=== PATIENT | female | born 1960 | race Caucasian/White ===

== ENCOUNTER 2018-02-07 00:21 | Inpatient (IN) | payer SELFPAY ==
[2018-02-07] MEDS ORDERED: dilTIAZem IV PUSH 25 MG/5 ML VIAL (00:49)
[2018-02-07] MEDS: ASPIRIN CHEWABLE 81 MG TABLET. PO (00:52)
[2018-02-07] MEDS: dilTIAZem IV PUSH 25 MG/5 ML VIAL IVP (00:53)
[2018-02-07 00:59] LABS: ADD MAN DIFF? NO
[2018-02-07 01:03] LABS: BASO # 0.1 x10^3/uL (0.0-0.2); BASO % 1 % (0-3); EOS # 0.4 x10^3/uL (0.0-0.7); EOS % 8 % (0-3); HEMATOCRIT 44.4 % (36.0-47.0); HEMOGLOBIN 15.5 g/dL (12.0-15.5); LYMPH # 2.9 x10^3/uL (1.0-4.8); LYMPH % 50 % (24-48); MEAN CORPUSCULAR HEMOGLOBIN 34 pg (25-35); MEAN CORPUSCULAR HGB CONC 35 g/dL (31-37); MEAN CORPUSCULAR VOLUME 96 fL (79-100); MONO # 0.5 x10^3/uL (0.0-1.1); MONO % 8 % (0-9); NEUT # 1.9 x10^3uL (1.8-7.7); NEUT % 33 % (31-73); PLATELET COUNT 185 x10^3/uL (140-400); RED BLOOD COUNT 4.63 x10^6/uL (3.50-5.40); RED CELL DISTRIBUTION WIDTH 12.8 % (11.5-14.5); WHITE BLOOD COUNT 5.8 x10^3/uL (4.0-11.0)
[2018-02-07 01:13] LABS: ANION GAP 9 (6-14); BLOOD UREA NITROGEN 21 mg/dL (7-20); BUN/CREATININE RATIO 26 (6-20); CALCIUM 10.3 mg/dL (8.5-10.1); CARBON DIOXIDE 30 mmol/L (21-32); CHLORIDE 104 mmol/L (98-107); CREATININE 0.8 mg/dL (0.6-1.0); GFR 73.9; GLUCOSE 88 mg/dL (70-99); POTASSIUM 3.4 mmol/L (3.5-5.1); SODIUM 143 mmol/L (136-145)
[2018-02-07 01:18] LABS: ALBUMIN 4.2 g/dL (3.4-5.0); ALK PHOS 97 U/L (46-116); ALT (SGPT) 27 U/L (14-59); AST (SGOT) 26 U/L (15-37); TOTAL BILIRUBIN 0.9 mg/dL (0.2-1.0); TOTAL PROTEIN 8.4 g/dL (6.4-8.2)
[2018-02-07 01:21] LABS: TROPONINI < 0.017 ng/mL (0.000-0.055)
[2018-02-07] MEDS: METOPROLOL TARTRATE 5 MG/5 ML VIAL. IVP ×2 (01:26→02:30)
[2018-02-07 03:27] LABS: TROPONINI 0.053 ng/mL (0.000-0.055)
[2018-02-07 03:33] LABS: THYROID STIM HORMONE (TSH) 4.425 uIU/mL (0.358-3.74)
[2018-02-07] MEDS ORDERED: NITROGLYCERIN SUBLINGUAL 0.4 MG BOTTLE OF 25. SL (04:15)
[2018-02-07] MEDS: IV NORMAL SALINE 1000ML BAG 1,000 ML IV (04:30)
[2018-02-07 07:35] LABS: TROPONINI 0.304 ng/mL (0.000-0.055)
[2018-02-07] MEDS: METOPROLOL TART IMMED RELEASE 25 MG TABLET. PO (12:31)
== END 2018-02-07 15:54 | disposition home or self-care (01) | DRG 309 ==
LOC: ER 00:21 → 2 SOUTH 04:15
DX: I48.92 Unspecified atrial flutter (principal); I24.8 Other forms of acute ischemic heart disease; I48.91 Unspecified atrial fibrillation; I10 Essential (primary) hypertension; Z88.0 Allergy status to penicillin; Z88.1 Allergy status to other antibiotic agents; Z91.041 Radiographic dye allergy status; Z82.49 Family history of ischemic heart disease and other diseases of the circulatory system; Z79.899 Other long term (current) drug therapy
CPT/HCPCS: 36415; 71045; 80053; 83735; 84443; 84484; 85025; 93005; 96374; 96375; 99285; 99285-25; J3490

== ENCOUNTER 2018-09-06 07:31 | Inpatient (IN) | payer OTHER ==
[~2018-09-06] VITALS: Ht 162.6 cm; Wt 89.1 kg
[~2018-09-06 07:31] MED LIST: CHOL100013 PO; GUAI600T47 PO; IBUP-1007 PO; LISI1TAB3 PO; MULT1TAB52 PO; OMEG1CAP6 PO
[2018-09-06] MEDS ORDERED: ONDANSETRON PF 4 MG/2 ML VIAL. IV ONE (08:00)
[2018-09-06] MEDS ORDERED: IV NORMAL SALINE 1000ML BAG 1,000 ML IV SCH (08:00)
[2018-09-06 08:02] LABS: BILIRUBIN,URINE NEGATIVE (NEG); CLARITY,URINE CLEAR; COLOR,URINE YELLOW; NITRITE,URINE NEGATIVE (NEG); PROTEIN,URINE NEGATIVE (NEG-TRACE); UROBILINOGEN,URINE 0.2 mg/dL (0.2 mg/dL)
[2018-09-06 08:12] LABS: SQUAMOUS EPITHELIAL CELL,UR MANY /LPF
[2018-09-06 08:13] LABS: BACTERIA,URINE MODERATE /HPF (0-FEW)
[2018-09-06 08:16] LABS: BASO % 0 % (0-3); EOS % 1 % (0-3); HEMATOCRIT 40.1 % (36.0-47.0); HEMOGLOBIN 13.6 g/dL (12.0-15.5); LYMPH # 0.4 x10^3/uL (1.0-4.8); LYMPH % 6 % (24-48); MEAN CORPUSCULAR HEMOGLOBIN 33 pg (25-35); MEAN CORPUSCULAR HGB CONC 34 g/dL (31-37); MEAN CORPUSCULAR VOLUME 97 fL (79-100); MONO # 0.3 x10^3/uL (0.0-1.1); MONO % 4 % (0-9); NEUT # 5.9 x10^3uL (1.8-7.7); NEUT % 88 % (31-73); PLATELET COUNT 229 x10^3/uL (140-400); RED BLOOD COUNT 4.12 x10^6/uL (3.50-5.40); RED CELL DISTRIBUTION WIDTH 12.9 % (11.5-14.5); WHITE BLOOD COUNT 6.7 x10^3/uL (4.0-11.0)
[2018-09-06 08:24] LABS: CREATININE 0.8 mg/dL (0.6-1.0); GFR 73.9; POTASSIUM 4.2 mmol/L (3.5-5.1)
[2018-09-06 08:29] LABS: ALBUMIN 3.5 g/dL (3.4-5.0); TOTAL BILIRUBIN 1.3 mg/dL (0.2-1.0)
[2018-09-06 10:11] LABS: % BANDS 4 % (0-9); % LYMPHS 6 % (24-48); % MONOS 3 % (0-10); % SEGS 87 % (35-66); PLT ESTIMATE ADEQUATE (ADEQUATE)
--- NOTE | 2018-09-06 11:07 | PDOC1 ---
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 was seen in urgent care 3 days ago and empirically given flagyl and has not heard back about c. diff results from [facility] yet. Her nausea was not relieved with zofran and she began vomiting and it was not stopped until zofran, reglan, benadryl in the ED. Last BM was this morning. Past Medical History Cardiovascular: HTN, Other Past Surgical History Past Surgical History: Cholecystectomy Family History Family History: Hypertension Social History Smoke: No ALCOHOL: rare Drugs: None Current Medications Current Medications Current Medications Sodium Chloride 1,000 ml @ 1,000 mls/hr Q1H IV Last administered on 09/06/18at 08:28; Start 09/06/18 at 08:00; Stop 09/06/18 at 08:59; Status DC Ondansetron HCl (Zofran) 4 mg 1X ONCE IV Last administered on 09/06/18at 08:28 ; Start 09/06/18 at 08:00; Stop 09/06/18 at 08:01; Status DC Active Scripts Active Reported Ibuprofen 600 Mg Tablet 600 Mg PO PRN Q6HRS PRN Mucinex (Guaifenesin) 600 Mg Tablet.er 1 Tab PO BID Vitamin D (Cholecalciferol (Vitamin D3)) 1,000 Unit Capsule 1 Cap PO DAILY Multivitamins (Multivitamin) 1 Each Tablet 1 Tab PO DAILY Fish Oil 1,000 Mg Capsule (Tad-3 Fatty Acids/Fish Oil) 1 Each Capsule 1 Each PO Lisinopril-Hctz 10-12.5 Mg Tab (Lisinopril/Hydrochlorothiazide) 1 Each Tablet 1 Tab PO DAILY Allergies Allergies: Coded Allergies: amoxicillin (Verified Allergy, Intermediate, immediate vomiting, 02/07/18) clavulanic acid (Verified Allergy, Intermediate, immediate vomiting, ) Iodinated Contrast- Oral and IV Dye (Verified Allergy, Mild, rash, 02/07/18 ) ROS General: YES: Appetite; No: Chills, Night Sweats, Fatigue, Malaise, Other PSYCHOLOGICAL ROS: No: Anxiety, Behavioral Disorder, Concentration difficultie , Decreased libido, Depression, Disorientation, Hallucinations, Hostility, Irritablity, Memory difficulties, Mood Swings, Obsessive thoughts, Physical abuse, Sexual abuse, Sleep disturbances, Suicidal ideation, Other Eyes: No Blurry vision, No Decreased vision, No Double vision, No Dry eyes, No Excessive tearing, No Eye Pain, No Itchy Eyes, No Loss of vision, No Photophobia , No Scotomata, No Uses contacts, No Uses glasses, No Other HEENT: No: Heacaches, Visual Changes, Hearing change, Nasal congestion, Nasal discharge, Oral lesions, Sinus pain, Sore Throat, Epistaxis, Sneezing, Snoring, Tinnitus, Vertigo, Vocal changes, Other ALLERGY AND IMMUNOLOGY: No: Hives, Insect Bite Sensitivity, Itchy/Watery Eyes, Nasal Congestion, Post Nasal Drip, Seasonal Allergies, Other Hematological and Lymphatic: No: Bleeding Problems, Blood Clots, Blood Transfusions, Brusing, Night Sweats, Pallor, Swollen Lymph Nodes, Other ENDOCRINE: No: Breast Changes, Galactorrhea, Hair Pattern Changes, Hot Flashes , Malaise/lethargy, Mood Swings, Palpitations, Polydipsia/polyuria, Skin Changes , Temperature Intolerance, Unexpected Weight Changes, Other Breast: No New/Changing Breast Lumps, No Nipple changes, No Nipple discharge, No Other Respiratory: No: Cough, Hemoptysis, Orthopnea, Pleuritic Pain, Shortness of breath, SOB with excertion, Sputum Changes, Stridor, Tachypnea, Wheezing, Other Cardiovascular: No Chest Pain, No Palpitations, No Orthopnea, No Paroxysmal Noc. Dyspnea, No Edema, No Lt Headedness, No Other Gastrointestinal: Yes Nausea, Yes Vomiting, Yes Diarrhea; No Abdominal Pain, No Constipation, No Melena, No Hematochezia, No Other Genitourinary: No Dysuria, No Frequency, No Incontinence, No Hematuria, No Retention, No Discharge, No Urgency, No Pain, No Flank Pain, No Other, No , No , No , No , No , No , No Musculoskeletal: No Gait Disturbance, No Joint Pain, No Joint Stiffness, No Joint Swelling, No Muscle Pain, No Muscular Weakness, No Pain In:, No Swelling In:, No Other Neurological: No Behavorial Changes, No Bowel/Bladder ControlChng, No Confusion , No Dizziness, No Gait Disturbance, No Headaches, No Impaired Coord/balance, No Memory Loss, No Numbness/Tingling, No Seizures, No Speech Problems, No Tremors, No Visual Changes, No Weakness, No Other Skin: No Dry Skin, No Eczema, No Hair Changes, No Lumps, No Mole Changes, No Mottling, No Nail Changes, No Pruritus, No Rash, No Skin Lesion Changes, No Other, No Acne Physical Exam General: Alert, Oriented X3, Cooperative, No acute distress HEENT: Atraumatic, PERRLA, EOMI, Mucous membr. moist/pink Lungs: Clear to auscultation, Normal air movement Heart: S1S2, RRR, no gallops, no murmurs Abdomen: Normal bowel sounds, Soft, No hepatosplenomegaly, No masses, Other ( Mild LLQ tender) Rectal Exam: not examined Extremities: No clubbing, No cyanosis, No edema, Normal pulses, No tenderness/ swelling Skin: No rashes, No breakdown, No significant lesion Neuro: Normal gait, Normal speech, Strength at 5/5 X4 ext, Normal tone, Sensation intact, Cranial nerves 3-12 NL, Reflexes 2+ Psych/Mental Status: Mental status NL, Mood NL Vitals Vitals Vital Signs Date Time Temp Pulse Resp B/P (MAP) Pulse Ox O2 Delivery O2 Flow Rate FiO2 09/06/18 07:35 98.1 63 16 132/71 (91) Room Air 98.1 Labs Labs Laboratory Tests Test 09/06/18 07:15 09/06/18 08:00 Urine Collection Type Void Urine Color Yellow Urine Clarity Clear Urine pH 6.0 Urine Specific [place] 1.025 Urine Protein Negative mg/dL (NEG-TRACE) Urine Glucose (UA) Negative mg/dL (NEG) Urine Ketones (Stick) Trace mg/dL (NEG) Urine Blood Negative (NEG) Urine Nitrite Negative (NEG) Urine Bilirubin Negative (NEG) Urine Urobilinogen Dipstick 0.2 mg/dL (0.2 mg/dL) Urine Leukocyte Esterase Small (NEG) Urine RBC 1-2 /HPF (0-2) Urine WBC 1-4 /HPF (0-4) Urine Squamous Epithelial Cells Many /LPF Urine Bacteria Moderate /HPF (0-FEW) Urine Mucus Marked /LPF White Blood Count 6.7 x10^3/uL (4.0-11.0) Red Blood Count 4.12 x10^6/uL (3.50-5.40) Hemoglobin 13.6 g/dL (12.0-15.5) Hematocrit 40.1 % (36.0-47.0) Mean Corpuscular Volume 97 fL (79-100) Mean Corpuscular Hemoglobin 33 pg (25-35) Mean Corpuscular Hemoglobin Concent 34 g/dL (31-37) Red Cell Distribution Width 12.9 % (11.5-14.5) Platelet Count 229 x10^3/uL (140-400) Neutrophils (%) (Auto) 88 % (31-73) Lymphocytes (%) (Auto) 6 % (24-48) Monocytes (%) (Auto) 4 % (0-9) Eosinophils (%) (Auto) 1 % (0-3) Basophils (%) (Auto) 0 % (0-3) Neutrophils # (Auto) 5.9 x10^3uL (1.8-7.7) Lymphocytes # (Auto) 0.4 x10^3/uL (1.0-4.8) Monocytes # (Auto) 0.3 x10^3/uL (0.0-1.1) Eosinophils # (Auto) 0.0 x10^3/uL (0.0-0.7) Basophils # (Auto) 0.0 x10^3/uL (0.0-0.2) Segmented Neutrophils % 87 % (35-66) Band Neutrophils % 4 % (0-9) Lymphocytes % 6 % (24-48) Monocytes % 3 % (0-10) Platelet Estimate Adequate (ADEQUATE) Sodium Level 144 mmol/L (136-145) Potassium Level 4.2 mmol/L (3.5-5.1) Chloride Level 104 mmol/L (98-107) Carbon Dioxide Level 29 mmol/L (21-32) Anion Gap 11 (6-14) Blood Urea Nitrogen 14 mg/dL (7-20) Creatinine 0.8 mg/dL (0.6-1.0) Estimated GFR (Cockcroft-Gault) 73.9 BUN/Creatinine Ratio 18 (6-20) Glucose Level 121 mg/dL (70-99) Calcium Level 9.0 mg/dL (8.5-10.1) Total Bilirubin 1.3 mg/dL (0.2-1.0) Aspartate Amino Transf (AST/SGOT) 121 U/L (15-37) Alanine Aminotransferase (ALT/SGPT) 84 U/L (14-59) Alkaline Phosphatase 101 U/L (46-116) Total Protein 7.0 g/dL (6.4-8.2) Albumin 3.5 g/dL (3.4-5.0) Albumin/Globulin Ratio 1.0 (1.0-1.7) Lipase 120 U/L (73-393) Laboratory Tests Test 09/06/18 07:15 09/06/18 08:00 Urine Collection Type Void Urine Color Yellow Urine Clarity Clear Urine pH 6.0 Urine Specific [place] 1.025 Urine Protein Negative mg/dL (NEG-TRACE) Urine Glucose (UA) Negative mg/dL (NEG) Urine Ketones (Stick) Trace mg/dL (NEG) Urine Blood Negative (NEG) Urine Nitrite Negative (NEG) Urine Bilirubin Negative (NEG) Urine Urobilinogen Dipstick 0.2 mg/dL (0.2 mg/dL) Urine Leukocyte Esterase Small (NEG) Urine RBC 1-2 /HPF (0-2) Urine WBC 1-4 /HPF (0-4) Urine Squamous Epithelial Cells Many /LPF Urine Bacteria Moderate /HPF (0-FEW) Urine Mucus Marked /LPF White Blood Count 6.7 x10^3/uL (4.0-11.0) Red Blood Count 4.12 x10^6/uL (3.50-5.40) Hemoglobin 13.6 g/dL (12.0-15.5) Hematocrit 40.1 % (36.0-47.0) Mean Corpuscular Volume 97 fL (79-100) Mean Corpuscular Hemoglobin 33 pg (25-35) Mean Corpuscular Hemoglobin Concent 34 g/dL (31-37) Red Cell Distribution Width 12.9 % (11.5-14.5) Platelet Count 229 x10^3/uL (140-400) Neutrophils (%) (Auto) 88 % (31-73) Lymphocytes (%) (Auto) 6 % (24-48) Monocytes (%) (Auto) 4 % (0-9) Eosinophils (%) (Auto) 1 % (0-3) Basophils (%) (Auto) 0 % (0-3) Neutrophils # (Auto) 5.9 x10^3uL (1.8-7.7) Lymphocytes # (Auto) 0.4 x10^3/uL (1.0-4.8) Monocytes # (Auto) 0.3 x10^3/uL (0.0-1.1) Eosinophils # (Auto) 0.0 x10^3/uL (0.0-0.7) Basophils # (Auto) 0.0 x10^3/uL (0.0-0.2) Segmented Neutrophils % 87 % (35-66) Band Neutrophils % 4 % (0-9) Lymphocytes % 6 % (24-48) Monocytes % 3 % (0-10) Platelet Estimate Adequate (ADEQUATE) Sodium Level 144 mmol/L (136-145) Potassium Level 4.2 mmol/L (3.5-5.1) Chloride Level 104 mmol/L (98-107) Carbon Dioxide Level 29 mmol/L (21-32) Anion Gap 11 (6-14) Blood Urea Nitrogen 14 mg/dL (7-20) Creatinine 0.8 mg/dL (0.6-1.0) Estimated GFR (Cockcroft-Gault) 73.9 BUN/Creatinine Ratio 18 (6-20) Glucose Level 121 mg/dL (70-99) Calcium Level 9.0 mg/dL (8.5-10.1) Total Bilirubin 1.3 mg/dL (0.2-1.0) Aspartate Amino Transf (AST/SGOT) 121 U/L (15-37) Alanine Aminotransferase (ALT/SGPT) 84 U/L (14-59) Alkaline Phosphatase 101 U/L (46-116) Total Protein 7.0 g/dL (6.4-8.2) Albumin 3.5 g/dL (3.4-5.0) Albumin/Globulin Ratio 1.0 (1.0-1.7) Lipase 120 U/L (73-393) VTE Prophylaxis Ordered VTE Prophylaxis Devices: Yes VTE Pharmacological Prophylaxi: No Assessment/Plan Assessment/Plan A/P: N/V/D - likely gastroenteritis, will not cont antibiotics. IVF, nausea control. No leukocytosis, but left shift Transaminitis - will get RUQ US, trend LFTs, IVF HTN - cont home meds FEN - NPO PPX - SCDs, Pepcid FULL CODE Inpatient for intractable nausea and vomiting requiring IV meds. DORI COPPOLA MD Sep 06, 2018 11:07
--- NOTE | 2018-09-06 11:08 | PHYS DOC ---
Past Medical History Past Medical History: Hypertension Past Surgical History: Cholecystectomy Alcohol Use: Occasionally Drug Use: None Adult General Chief Complaint Chief Complaint: NAUSEA/VOMITING/DIARRHA HPI HPI Patient is a 57-year-old female who presents with complaint of nausea and vomiting. Patient states that she has had diarrhea for the last several days and received tentative diagnosis of colitis. 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 She states that shortly after having worked with 1 particular patient she developed fairly severe diarrhea. She was seen over at urgent care and a stool culture was sent for evaluation for C. difficile but she is still waiting for culture results. Patient states that she was started on metronidazole 3 days ago and states that she has been taking at least 2 doses of the metronidazole day. She states that yesterday she developed nausea with vomiting and states since that time she has not really keep much other than just water down. She does indicate that she has a little bit of abdominal cramping. She denies any significant pain otherwise. Patient is concerned that she is becoming dehydrated. Review of Systems Review of Systems Constitutional: Denies fever or chills [] Respiratory: Denies cough or shortness of breath [] Cardiovascular: No additional information not addressed in HPI [] GI: Denies abdominal pain. Complains of nausea with vomiting and diarrhea. [] Integument: Denies rash or skin lesions [] Neurologic: Denies headache, focal weakness or sensory changes [] All other systems were reviewed and found to be within normal limits, except as documented in this note. Current Medications Current Medications Current Medications Medications (Trade) Dose Ordered Sig/Juan Start Time Stop Time Status Last Admin Dose Admin Ondansetron HCl (Zofran) 4 mg 1X ONCE 09/06/18 08:00 09/06/18 08:01 DC 09/06/18 08:28 4 MG Sodium Chloride 1,000 ml @ 1,000 mls/hr Q1H 09/06/18 08:00 09/06/18 08:59 DC 09/06/18 08:28 1,000 MLS/HR Allergies Allergies Allergies Coded Allergies Type Severity Reaction Last Updated Verified amoxicillin Allergy Intermediate immediate vomiting 02/07/18 Yes clavulanic acid Allergy Intermediate immediate vomiting 02/07/18 Yes Iodinated Contrast- Oral and IV Dye Allergy Mild rash 02/07/18 Yes Physical Exam Physical Exam Constitutional: Well developed, well nourished, no acute distress, non-toxic appearance. [] HENT: Normocephalic, atraumatic, bilateral external ears normal, oropharynx dry , no oral exudates, nose normal. [] Eyes: PERRLA, EOMI, conjunctiva normal, no discharge. [] Neck: Normal range of motion, no tenderness, supple, no stridor. [] Cardiovascular: Regular rate and rhythm[] Lungs & Thorax: Bilateral breath sounds clear to auscultation [] Abdomen: Bowel sounds normal, soft, no tenderness. [] Skin: Warm, dry, no erythema, no rash. [] Extremities: No tenderness, no cyanosis, no clubbing, ROM intact, no edema. [] Neurologic: Alert and oriented X 3, no focal deficits noted. [] Current Patient Data Vital Signs Vital Signs Date Time Temp Pulse Resp B/P (MAP) Pulse Ox O2 Delivery O2 Flow Rate FiO2 09/06/18 10:30 68 16 121/68 (85) 98 Room Air 09/06/18 07:35 98.1 98.1 Lab Values Laboratory Tests Test 09/06/18 07:15 09/06/18 08:00 Urine Collection Type Void Urine Color Yellow Urine Clarity Clear Urine pH 6.0 Urine Specific [place] 1.025 Urine Protein Negative mg/dL (NEG-TRACE) Urine Glucose (UA) Negative mg/dL (NEG) Urine Ketones (Stick) Trace mg/dL (NEG) Urine Blood Negative (NEG) Urine Nitrite Negative (NEG) Urine Bilirubin Negative (NEG) Urine Urobilinogen Dipstick 0.2 mg/dL (0.2 mg/dL) Urine Leukocyte Esterase Small (NEG) Urine RBC 1-2 /HPF (0-2) Urine WBC 1-4 /HPF (0-4) Urine Squamous Epithelial Cells Many /LPF Urine Bacteria Moderate /HPF (0-FEW) Urine Mucus Marked /LPF White Blood Count 6.7 x10^3/uL (4.0-11.0) Red Blood Count 4.12 x10^6/uL (3.50-5.40) Hemoglobin 13.6 g/dL (12.0-15.5) Hematocrit 40.1 % (36.0-47.0) Mean Corpuscular Volume 97 fL (79-100) Mean Corpuscular Hemoglobin 33 pg (25-35) Mean Corpuscular Hemoglobin Concent 34 g/dL (31-37) Red Cell Distribution Width 12.9 % (11.5-14.5) Platelet Count 229 x10^3/uL (140-400) Neutrophils (%) (Auto) 88 % (31-73) H Lymphocytes (%) (Auto) 6 % (24-48) L Monocytes (%) (Auto) 4 % (0-9) Eosinophils (%) (Auto) 1 % (0-3) Basophils (%) (Auto) 0 % (0-3) Neutrophils # (Auto) 5.9 x10^3uL (1.8-7.7) Lymphocytes # (Auto) 0.4 x10^3/uL (1.0-4.8) L Monocytes # (Auto) 0.3 x10^3/uL (0.0-1.1) Eosinophils # (Auto) 0.0 x10^3/uL (0.0-0.7) Basophils # (Auto) 0.0 x10^3/uL (0.0-0.2) Segmented Neutrophils % 87 % (35-66) H Band Neutrophils % 4 % (0-9) Lymphocytes % 6 % (24-48) L Monocytes % 3 % (0-10) Platelet Estimate Adequate (ADEQUATE) Sodium Level 144 mmol/L (136-145) Potassium Level 4.2 mmol/L (3.5-5.1) Chloride Level 104 mmol/L (98-107) Carbon Dioxide Level 29 mmol/L (21-32) Anion Gap 11 (6-14) Blood Urea Nitrogen 14 mg/dL (7-20) Creatinine 0.8 mg/dL (0.6-1.0) Estimated GFR (Cockcroft-Gault) 73.9 BUN/Creatinine Ratio 18 (6-20) Glucose Level 121 mg/dL (70-99) H Calcium Level 9.0 mg/dL (8.5-10.1) Total Bilirubin 1.3 mg/dL (0.2-1.0) H Aspartate Amino Transferase (AST) 121 U/L (15-37) H Alanine Aminotransferase (ALT) 84 U/L (14-59) H Alkaline Phosphatase 101 U/L (46-116) Total Protein 7.0 g/dL (6.4-8.2) Albumin 3.5 g/dL (3.4-5.0) Albumin/Globulin Ratio 1.0 (1.0-1.7) Lipase 120 U/L (73-393) Laboratory Tests 09/06/18 08:00 Laboratory Tests 09/06/18 08:00 EKG EKG [] Radiology/Procedures Radiology/Procedures [] Course & Med Decision Making Course & Med Decision Making Pertinent Labs and Imaging studies reviewed. (See chart for details) [] Dragon Disclaimer Dragon Disclaimer This electronic medical record was generated, in whole or in part, using a voice recognition dictation system. Departure Departure Impression: Primary Impression: C. difficile diarrhea Additional Impression: Intractable vomiting with nausea Disposition: ADMITTED INPATIENT Admitting Physician: Other Condition: IMPROVED (Dr. Beyer) Referrals: UNKNOWN PCP NAME (PCP) Problem Qualifiers Additional Impression: Intractable vomiting with nausea Vomiting type: unspecified Qualified Codes: R11.2 - Nausea with vomiting, unspecified VIN HINSON Jr. DO Sep 06, 2018 11:08
[2018-09-06] MEDS ORDERED: ONDANSETRON PF 4 MG/2 ML VIAL. IV PRN (11:15)
[2018-09-06] MEDS ORDERED: METOCLOPRAMIDE HCL 10 MG/2 ML VIAL. IV ONE (11:30)
[2018-09-06] MEDS ORDERED: diphenhydrAMINE 50 MG/ML VIAL IVP ONE (11:30)
[2018-09-06] MEDS: IV NORMAL SALINE 1000ML BAG 1,000 ML IV SCH ×2 (11:43→21:16)
[2018-09-06 12:44] VITALS: BP 115/68
[2018-09-06] MEDS ORDERED: METOCLOPRAMIDE HCL 10 MG/2 ML VIAL. IV PRN (13:30)
[2018-09-06] MEDS ORDERED: ONDANSETRON ODT 4 MG TAB.RAPDIS. PO PRN (13:30)
[2018-09-06] MEDS ORDERED: PROCHLORPERAZINE 10 MG/2 ML VIAL. IV PRN (13:30)
[2018-09-06] MEDS: ASPIRIN ENTERIC COATED 81 MG TABLET.DR. PO SCH (14:00)
[2018-09-06] MEDS: ATENOLOL 25 MG TABLET. PO SCH (14:00)
[2018-09-06] MEDS: APIXABAN 5 MG TABLET. PO SCH ×2 (14:00→21:13)
[2018-09-06] MEDS: FAMOTIDINE 20 MG/2 ML VIAL IVP SCH ×2 (14:15→21:13)
[2018-09-06] MEDS: ONDANSETRON PF 4 MG/2 ML VIAL. IV PRN (14:21)
--- NOTE | 2018-09-06 14:28 | RAD ---
Indication:Right upper quadrant pain, transaminitis. TECHNIQUE: Grayscale, color Doppler and spectral waveform is of the abdomen obtained. COMPARISON:None FINDINGS: Pancreas is not well visualized due to overlying bowel gas. IVC within normal limits. No aortic aneurysm. Main portal vein is patent with hepatopedal flow. Liver measures 16 cm in longest dimension with diffusely increased echogenicity and decreased through transmission. Right kidney measures 9.7 cm in length without hydronephrosis. CBD measures 5 mm in diameter and is within normal limits. Status post cholecystectomy. Spleen measures 10 cm in length an is normal in size. Left kidney measures 11.9 cm in length without hydronephrosis. IMPRESSION: 1. Hepatic steatosis. Electronically signed by: Pro Gallardo DO (09/06/2018 2:23 PM) [facility]
[2018-09-06 15:00] VITALS: BP 118/76
[2018-09-06 19:37] VITALS: BP 128/62
[2018-09-06] MEDS ORDERED: ACETAMINOPHEN 325 MG TABLET. PO PRN (21:45)
[2018-09-06 23:49] VITALS: BP 110/62
[2018-09-07 03:15] VITALS: BP 109/67
[2018-09-07 04:21] LABS: BASO % 1 % (0-3); EOS # 0.1 x10^3/uL (0.0-0.7); EOS % 2 % (0-3); HEMATOCRIT 33.6 % (36.0-47.0); HEMOGLOBIN 11.4 g/dL (12.0-15.5); LYMPH # 0.7 x10^3/uL (1.0-4.8); LYMPH % 23 % (24-48); MEAN CORPUSCULAR HEMOGLOBIN 33 pg (25-35); MEAN CORPUSCULAR HGB CONC 34 g/dL (31-37); MEAN CORPUSCULAR VOLUME 98 fL (79-100); MONO # 0.3 x10^3/uL (0.0-1.1); MONO % 12 % (0-9); NEUT # 1.8 x10^3uL (1.8-7.7); NEUT % 62 % (31-73); PLATELET COUNT 182 x10^3/uL (140-400); RED BLOOD COUNT 3.43 x10^6/uL (3.50-5.40); RED CELL DISTRIBUTION WIDTH 12.7 % (11.5-14.5); WHITE BLOOD COUNT 2.8 x10^3/uL (4.0-11.0)
[2018-09-07 04:31] LABS: CALCIUM 7.9 mg/dL (8.5-10.1); CREATININE 0.7 mg/dL (0.6-1.0); GFR 86.2; POTASSIUM 3.2 mmol/L (3.5-5.1)
[2018-09-07] MEDS: IV NORMAL SALINE 1000ML BAG 1,000 ML IV SCH ×3 (04:50→20:24)
[2018-09-07 06:59] VITALS: BP 112/69
[2018-09-07] MEDS: ATENOLOL 25 MG TABLET. PO SCH (09:00)
[2018-09-07] MEDS: ASPIRIN ENTERIC COATED 81 MG TABLET.DR. PO SCH (09:46)
[2018-09-07] MEDS: APIXABAN 5 MG TABLET. PO SCH ×2 (09:46→20:26)
[2018-09-07] MEDS: FAMOTIDINE 20 MG/2 ML VIAL IVP SCH ×2 (09:48→20:27)
[2018-09-07] MEDS: ONDANSETRON PF 4 MG/2 ML VIAL. IV PRN (10:00)
[2018-09-07] MEDS: POTASSIUM CHLORIDE 20 MEQ TABLET.ER. PO SCH ×3 (10:00→13:56)
[2018-09-07 11:26] VITALS: BP 117/70
--- NOTE | 2018-09-07 13:36 | PDOC ---
PROGRESS NOTES Chief Complaint Chief Complaint N/V/D - likely gastroenteritis, will start oral vancomycin. IVF, nausea control. No leukocytosis, but left shift Transaminitis - will get RUQ US, trend LFTs, IVF HTN - cont home meds advance to a low residue bland diet follow results of c diff testing start oral vancomycin empirically. may discontinue if negative c diff testing results PPX - SCDs, Pepcid FULL CODE History of Present Illness History of Present Illness No new complaints compared to admission she feels better. Still pain that feels dehydrated given the amount of diarrhea that she has been experiencing saying in the past few days. Plan of care plan in detail all concerns address to the best of my abilities no fever chills no chest pain palpitations no other symptoms Foister in my visit Vitals Vitals Vital Signs Date Time Temp Pulse Resp B/P (MAP) Pulse Ox O2 Delivery O2 Flow Rate FiO2 09/07/18 11:26 99.0 68 16 117/70 (86) 95 Room Air 99.0 Physical Exam General: Alert, Oriented X3, Cooperative, No acute distress Abdomen: Normal bowel sounds, Soft, No hepatosplenomegaly, No masses, Other ( Mild LLQ tender) Extremities: No clubbing, No cyanosis, No edema, Normal pulses, No tenderness/ swelling Skin: No rashes, No breakdown, No significant lesion Labs LABS Laboratory Tests Test 09/07/18 02:40 09/07/18 02:45 White Blood Count 2.8 x10^3/uL (4.0-11.0) Red Blood Count 3.43 x10^6/uL (3.50-5.40) Hemoglobin 11.4 g/dL (12.0-15.5) Hematocrit 33.6 % (36.0-47.0) Mean Corpuscular Volume 98 fL (79-100) Mean Corpuscular Hemoglobin 33 pg (25-35) Mean Corpuscular Hemoglobin Concent 34 g/dL (31-37) Red Cell Distribution Width 12.7 % (11.5-14.5) Platelet Count 182 x10^3/uL (140-400) Neutrophils (%) (Auto) 62 % (31-73) Lymphocytes (%) (Auto) 23 % (24-48) Monocytes (%) (Auto) 12 % (0-9) Eosinophils (%) (Auto) 2 % (0-3) Basophils (%) (Auto) 1 % (0-3) Neutrophils # (Auto) 1.8 x10^3uL (1.8-7.7) Lymphocytes # (Auto) 0.7 x10^3/uL (1.0-4.8) Monocytes # (Auto) 0.3 x10^3/uL (0.0-1.1) Eosinophils # (Auto) 0.1 x10^3/uL (0.0-0.7) Basophils # (Auto) 0.0 x10^3/uL (0.0-0.2) Sodium Level 142 mmol/L (136-145) Potassium Level 3.2 mmol/L (3.5-5.1) Chloride Level 108 mmol/L (98-107) Carbon Dioxide Level 26 mmol/L (21-32) Anion Gap 8 (6-14) Blood Urea Nitrogen 7 mg/dL (7-20) Creatinine 0.7 mg/dL (0.6-1.0) Estimated GFR (Cockcroft-Gault) 86.2 Glucose Level 91 mg/dL (70-99) Calcium Level 7.9 mg/dL (8.5-10.1) Review of Systems Review of Systems Pertinent as per history of present illness otherwise 14 point review of system is negative Assessment and Plan Assessmemt and Plan Problems Medical Problems: (1) C. difficile diarrhea Status: Acute (2) Intractable vomiting with nausea Status: Acute Comment Review of Relevant I have reviewed the following items aleksey (where applicable) has been applied. Labs Laboratory Tests Test 09/06/18 07:15 09/06/18 08:00 09/07/18 02:40 09/07/18 02:45 Urine Collection Type Void Urine Color Yellow Urine Clarity Clear Urine pH 6.0 Urine Specific [place] 1.025 Urine Protein Negative mg/dL (NEG-TRACE) Urine Glucose (UA) Negative mg/dL (NEG) Urine Ketones (Stick) Trace mg/dL (NEG) Urine Blood Negative (NEG) Urine Nitrite Negative (NEG) Urine Bilirubin Negative (NEG) Urine Urobilinogen Dipstick 0.2 mg/dL (0.2 mg/dL) Urine Leukocyte Esterase Small (NEG) Urine RBC 1-2 /HPF (0-2) Urine WBC 1-4 /HPF (0-4) Urine Squamous Epithelial Cells Many /LPF Urine Bacteria Moderate /HPF (0-FEW) Urine Mucus Marked /LPF White Blood Count 6.7 x10^3/uL (4.0-11.0) 2.8 x10^3/uL (4.0-11.0) Red Blood Count 4.12 x10^6/uL (3.50-5.40) 3.43 x10^6/uL (3.50-5.40) Hemoglobin 13.6 g/dL (12.0-15.5) 11.4 g/dL (12.0-15.5) Hematocrit 40.1 % (36.0-47.0) 33.6 % (36.0-47.0) Mean Corpuscular Volume 97 fL (79-100) 98 fL (79-100) Mean Corpuscular Hemoglobin 33 pg (25-35) 33 pg (25-35) Mean Corpuscular Hemoglobin Concent 34 g/dL (31-37) 34 g/dL (31-37) Red Cell Distribution Width 12.9 % (11.5-14.5) 12.7 % (11.5-14.5) Platelet Count 229 x10^3/uL (140-400) 182 x10^3/uL (140-400) Neutrophils (%) (Auto) 88 % (31-73) 62 % (31-73) Lymphocytes (%) (Auto) 6 % (24-48) 23 % (24-48) Monocytes (%) (Auto) 4 % (0-9) 12 % (0-9) Eosinophils (%) (Auto) 1 % (0-3) 2 % (0-3) Basophils (%) (Auto) 0 % (0-3) 1 % (0-3) Neutrophils # (Auto) 5.9 x10^3uL (1.8-7.7) 1.8 x10^3uL (1.8-7.7) Lymphocytes # (Auto) 0.4 x10^3/uL (1.0-4.8) 0.7 x10^3/uL (1.0-4.8) Monocytes # (Auto) 0.3 x10^3/uL (0.0-1.1) 0.3 x10^3/uL (0.0-1.1) Eosinophils # (Auto) 0.0 x10^3/uL (0.0-0.7) 0.1 x10^3/uL (0.0-0.7) Basophils # (Auto) 0.0 x10^3/uL (0.0-0.2) 0.0 x10^3/uL (0.0-0.2) Segmented Neutrophils % 87 % (35-66) Band Neutrophils % 4 % (0-9) Lymphocytes % 6 % (24-48) Monocytes % 3 % (0-10) Platelet Estimate Adequate (ADEQUATE) Sodium Level 144 mmol/L (136-145) 142 mmol/L (136-145) Potassium Level 4.2 mmol/L (3.5-5.1) 3.2 mmol/L (3.5-5.1) Chloride Level 104 mmol/L (98-107) 108 mmol/L (98-107) Carbon Dioxide Level 29 mmol/L (21-32) 26 mmol/L (21-32) Anion Gap 11 (6-14) 8 (6-14) Blood Urea Nitrogen 14 mg/dL (7-20) 7 mg/dL (7-20) Creatinine 0.8 mg/dL (0.6-1.0) 0.7 mg/dL (0.6-1.0) Estimated GFR (Cockcroft-Gault) 73.9 86.2 BUN/Creatinine Ratio 18 (6-20) Glucose Level 121 mg/dL (70-99) 91 mg/dL (70-99) Calcium Level 9.0 mg/dL (8.5-10.1) 7.9 mg/dL (8.5-10.1) Total Bilirubin 1.3 mg/dL (0.2-1.0) Aspartate Amino Transf (AST/SGOT) 121 U/L (15-37) Alanine Aminotransferase (ALT/SGPT) 84 U/L (14-59) Alkaline Phosphatase 101 U/L (46-116) Total Protein 7.0 g/dL (6.4-8.2) Albumin 3.5 g/dL (3.4-5.0) Albumin/Globulin Ratio 1.0 (1.0-1.7) Lipase 120 U/L (73-393) Laboratory Tests Test 09/07/18 02:40 09/07/18 02:45 White Blood Count 2.8 x10^3/uL (4.0-11.0) Red Blood Count 3.43 x10^6/uL (3.50-5.40) Hemoglobin 11.4 g/dL (12.0-15.5) Hematocrit 33.6 % (36.0-47.0) Mean Corpuscular Volume 98 fL (79-100) Mean Corpuscular Hemoglobin 33 pg (25-35) Mean Corpuscular Hemoglobin Concent 34 g/dL (31-37) Red Cell Distribution Width 12.7 % (11.5-14.5) Platelet Count 182 x10^3/uL (140-400) Neutrophils (%) (Auto) 62 % (31-73) Lymphocytes (%) (Auto) 23 % (24-48) Monocytes (%) (Auto) 12 % (0-9) Eosinophils (%) (Auto) 2 % (0-3) Basophils (%) (Auto) 1 % (0-3) Neutrophils # (Auto) 1.8 x10^3uL (1.8-7.7) Lymphocytes # (Auto) 0.7 x10^3/uL (1.0-4.8) Monocytes # (Auto) 0.3 x10^3/uL (0.0-1.1) Eosinophils # (Auto) 0.1 x10^3/uL (0.0-0.7) Basophils # (Auto) 0.0 x10^3/uL (0.0-0.2) Sodium Level 142 mmol/L (136-145) Potassium Level 3.2 mmol/L (3.5-5.1) Chloride Level 108 mmol/L (98-107) Carbon Dioxide Level 26 mmol/L (21-32) Anion Gap 8 (6-14) Blood Urea Nitrogen 7 mg/dL (7-20) Creatinine 0.7 mg/dL (0.6-1.0) Estimated GFR (Cockcroft-Gault) 86.2 Glucose Level 91 mg/dL (70-99) Calcium Level 7.9 mg/dL (8.5-10.1) Medications Current Medications Sodium Chloride 1,000 ml @ 1,000 mls/hr Q1H IV Last administered on 09/06/18at 08:28; Start 09/06/18 at 08:00; Stop 09/06/18 at 08:59; Status DC Ondansetron HCl (Zofran) 4 mg 1X ONCE IV Last administered on 09/06/18at 08:28 ; Start 09/06/18 at 08:00; Stop 09/06/18 at 08:01; Status DC Metoclopramide HCl (Reglan Vial) 10 mg 1X ONCE IV Last administered on 11:43; Start 09/06/18 at 11:30; Stop 09/06/18 at 11:31; Status DC Diphenhydramine HCl (Benadryl) 25 mg 1X ONCE IVP Last administered on 11:43; Start 09/06/18 at 11:30; Stop 09/06/18 at 11:31; Status DC Ondansetron HCl (Zofran) 4 mg PRN Q8HRS PRN IV NAUSEA/VOMITING; Start 09/06/18 at 11:15; Stop 09/06/18 at 13:26; Status DC Sodium Chloride 1,000 ml @ 125 mls/hr Q8H IV Last administered on 09/07/18at 04 :50; Start 09/06/18 at 12:00; Stop 09/07/18 at 11:59; Status DC Atenolol (Tenormin) 25 mg DAILY PO ; Start 09/06/18 at 14:00; Stop 09/07/18 at 10:24; Status DC Apixaban (Eliquis) 5 mg BID PO Last administered on 09/07/18at 09:46; Start 05/15 at 14:00 Aspirin (Ecotrin) 81 mg DAILYWBKFT PO Last administered on 09/07/18at 09:46; Start 09/06/18 at 14:00 Famotidine (Pepcid Vial) 20 mg BID IVP Last administered on 09/07/18at 09:48; Start 09/06/18 at 14:00 Ondansetron HCl (Zofran Odt) 4 mg PRN Q6HRS PRN PO NAUSEA/VOMITING; Start 09/06 at 13:30 Ondansetron HCl (Zofran) 4 mg PRN Q6HRS PRN IV NAUSEA/VOMITING, 1st CHOICE Last administered on 09/07/18at 10:00; Start 09/06/18 at 13:30 Prochlorperazine Edisylate (Compazine) 10 mg PRN Q6HRS PRN IV NAUSEA/VOMITING, 2nd CHOICE; Start 09/06/18 at 13:30 Metoclopramide HCl (Reglan Vial) 5 mg PRN Q6HRS PRN IV NAUSEA/VOMITING; Start 09/06/18 at 13:30 Acetaminophen (Tylenol) 650 mg PRN Q6HRS PRN PO temp Last administered on at 22:06; Start 09/06/18 at 21:45 Potassium Chloride (Klor-Con) 40 meq Q2H PO Last administered on 09/07/18at 12: 15; Start 09/07/18 at 08:00; Stop 09/07/18 at 12:01; Status DC Atenolol (Tenormin) 25 mg DAILYWSUP PO ; Start 09/07/18 at 17:00 Vancomycin HCl (Vancomycin Oral Solution) 125 mg [id number] PO ; Start 09/07/18 at 13:00 Sodium Chloride 1,000 ml @ 125 mls/hr Q8H IV ; Start 09/07/18 at 13:00 Active Scripts Active Reported Ibuprofen 600 Mg Tablet 600 Mg PO PRN Q6HRS PRN Mucinex (Guaifenesin) 600 Mg Tablet.er 1 Tab PO BID Vitamin D (Cholecalciferol (Vitamin D3)) 1,000 Unit Capsule 1 Cap PO DAILY Multivitamins (Multivitamin) 1 Each Tablet 1 Tab PO DAILY Fish Oil 1,000 Mg Capsule ([place]-3 Fatty Acids/Fish Oil) 1 Each Capsule 1 Each PO Lisinopril-Hctz 10-12.5 Mg Tab (Lisinopril/Hydrochlorothiazide) 1 Each Tablet 1 Tab PO DAILY Vitals/I & O Vital Sign - Last 24 Hours 09/06/18 09/06/18 09/06/18 09/06/18 15:00 19:37 20:00 23:49 Temp 98.0 99.5 99.5 98.0 99.5 99.5 Pulse 84 80 73 Resp 18 18 19 B/P (MAP) 118/76 (90) 128/62 (84) 110/62 (78) Pulse Ox 97 97 93 O2 Delivery Room Air Room Air Room Air Room Air 09/07/18 09/07/18 09/07/18 09/07/18 03:15 06:59 08:00 11:26 Temp 98.1 99.4 99.0 98.1 99.4 99.0 Pulse 67 70 68 Resp 15 16 16 B/P (MAP) 109/67 (81) 112/69 (83) 117/70 (86) Pulse Ox 94 95 95 O2 Delivery Room Air Room Air Room Air Room Air Intake and Output 09/06/18 09/06/18 09/07/18 15:01 23:01 07:01 Intake Total 600 ml 470 ml Balance 600 ml 470 ml JOSE BOWEN MD Sep 07, 2018 13:35
[2018-09-07] MEDS: VANCOMYCIN 125 MG/2.5 ML ORAL SOLUTION. PO SCH ×3 (13:56→20:26)
[2018-09-07 14:37] VITALS: BP 119/63
[2018-09-07] MEDS ORDERED: ATENOLOL 25 MG TABLET. PO SCH (17:00)
[2018-09-07 19:52] VITALS: BP 128/70
[2018-09-07 23:35] VITALS: BP 123/66
[2018-09-08 03:50] VITALS: BP 121/63
[2018-09-08] MEDS: IV NORMAL SALINE 1000ML BAG 1,000 ML IV SCH ×2 (04:31→13:00)
[2018-09-08 07:00] VITALS: BP 131/77
[2018-09-08] MEDS: VANCOMYCIN 125 MG/2.5 ML ORAL SOLUTION. PO SCH ×2 (08:26→13:00)
[2018-09-08] MEDS: APIXABAN 5 MG TABLET. PO SCH (08:26)
[2018-09-08] MEDS: ASPIRIN ENTERIC COATED 81 MG TABLET.DR. PO SCH (08:26)
[2018-09-08] MEDS: FAMOTIDINE 20 MG/2 ML VIAL IVP SCH (08:26)
--- NOTE | 2018-09-08 08:53 | NUR ---
SW following pt for anticipated dc needs. Chart reviewed. Pt lives at home with spouse and is on room air. No SW needs indicated at this time. SW will continue to follow.
[2018-09-08 10:55] VITALS: BP 137/79
[2018-09-08] MEDS ORDERED: LOPERAMIDE 2 MG CAPSULE PO PRN (13:15)
[2018-09-08] MEDS ORDERED: POTASSIUM CHLORIDE 20 MEQ TABLET.ER. PO ONE (13:15)
--- NOTE | 2018-09-08 14:09 | PDOC3 ---
Discharge Summary Visit Information Date of Admission: Sep 06, 2018 Date of Discharge: Sep 08, 2018 Admitting Diagnosis Comment: Acute Gastroenteritis negative C. difficile Hospice nurse Overweight, BMI 34 SIRS POA resolved Mild hypokalemia secondary to GI loss Final Diagnosis Problems Medical Problems: (1) C. difficile diarrhea Status: Acute (2) Intractable vomiting with nausea Status: Acute Brief Hospital Course Allergies Allergies Coded Allergies Type Severity Reaction Last Updated Verified amoxicillin Allergy Intermediate immediate vomiting 02/07/18 Yes clavulanic acid Allergy Intermediate immediate vomiting 02/07/18 Yes Iodinated Contrast- Oral and IV Dye Allergy Mild rash 02/07/18 Yes Vital Signs Vital Signs Date Time Temp Pulse Resp B/P (MAP) Pulse Ox O2 Delivery O2 Flow Rate FiO2 09/08/18 10:55 97.7 56 18 137/79 (98) 98 Room Air 97.7 Lab Results Laboratory Tests Test 09/06/18 14:32 09/07/18 02:40 09/07/18 02:45 Clostridium difficile Toxin B Gene Negative (Negative) White Blood Count 2.8 x10^3/uL (4.0-11.0) Red Blood Count 3.43 x10^6/uL (3.50-5.40) Hemoglobin 11.4 g/dL (12.0-15.5) Hematocrit 33.6 % (36.0-47.0) Mean Corpuscular Volume 98 fL (79-100) Mean Corpuscular Hemoglobin 33 pg (25-35) Mean Corpuscular Hemoglobin Concent 34 g/dL (31-37) Red Cell Distribution Width 12.7 % (11.5-14.5) Platelet Count 182 x10^3/uL (140-400) Neutrophils (%) (Auto) 62 % (31-73) Lymphocytes (%) (Auto) 23 % (24-48) Monocytes (%) (Auto) 12 % (0-9) Eosinophils (%) (Auto) 2 % (0-3) Basophils (%) (Auto) 1 % (0-3) Neutrophils # (Auto) 1.8 x10^3uL (1.8-7.7) Lymphocytes # (Auto) 0.7 x10^3/uL (1.0-4.8) Monocytes # (Auto) 0.3 x10^3/uL (0.0-1.1) Eosinophils # (Auto) 0.1 x10^3/uL (0.0-0.7) Basophils # (Auto) 0.0 x10^3/uL (0.0-0.2) Sodium Level 142 mmol/L (136-145) Potassium Level 3.2 mmol/L (3.5-5.1) Chloride Level 108 mmol/L (98-107) Carbon Dioxide Level 26 mmol/L (21-32) Anion Gap 8 (6-14) Blood Urea Nitrogen 7 mg/dL (7-20) Creatinine 0.7 mg/dL (0.6-1.0) Estimated GFR (Cockcroft-Gault) 86.2 Glucose Level 91 mg/dL (70-99) Calcium Level 7.9 mg/dL (8.5-10.1) Brief Hospital Course 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 About 6 days diarrhea multiple times in a day, now is getting better. C. difficile is negative. Went to urgent care was given Flagyl she thought that made her worse. I thought that made her better based on her account of the days and her symptoms. In any case feeling better tolerating a diet, forming stools now able to go home with by mouth Pepcid by mouth Imodium [id number]. Patient already has Flagyl couple pills left. I did not see the need to prescribe any more antibiotics at this point C. difficile negative Proc; none COnsults: none K replaced judiciously Discharge Information Condition at Discharge: Improved, Stable Disposition/Orders: D/C to Home Scheduled Cholecalciferol (Vitamin D3) (Vitamin D) 1,000 Unit Capsule, 1 CAP PO DAILY, # 30 Ref 3 (Reported) Entered as Reported by: GE[place] JANE on 02/07/18 0710 Last Action: Reviewed on 09/06/18 1319 by GENI SUÁREZ RN Guaifenesin (Mucinex) 600 Mg Tablet.er, 1 TAB PO BID, #14 (Reported) Entered as Reported by: GEORGIA JANE on 02/07/18 0710 Lisinopril/Hydrochlorothiazide (Lisinopril-Hctz 10-12.5 Mg Tab) 1 Each Tablet, 1 TAB PO DAILY, #30 Ref 5 (Reported) Entered as Reported by: GEORGIA JANE on 02/07/18709 Last Action: Reviewed on 09/06/181318 by GENI SUÁREZ RN Multivitamin (Multivitamins) 1 Each Tablet, 1 TAB PO DAILY, #90 Ref 3 (Reported) Entered as Reported by: GEORG[place] JANE on 02/07/18709 Scheduled PRN Ibuprofen (Ibuprofen) 600 Mg Tablet, 600 MG PO PRN Q6HRS PRN for INFLAMMATION, ( Reported) Entered as Reported by: GEORGIA JANE on 02/07/18709 Miscellaneous Medications [place]-3 Fatty Acids/Fish Oil (Fish Oil 1,000 Mg Capsule) 1 Each Capsule, 1 EACH PO, (Reported) Entered as Reported by: GEORGIA JANE on 02/07/18709 Last Action: Reviewed on 09/06/181318 by MARGARET RIVERA CHERRIE Y MD Sep 08, 2018 14:09
--- NOTE | 2018-09-08 15:09 | NUR ---
Patient discharged to home. Discharge instructions, medications, and follow up appointments discussed with patient. Patient verbalized understanding. Discharge papers and release to work given to patient. IV discontinued. Patient ambulated out with staff and patients at this time.
[2018-09-09] MEDS ORDERED: POTASSIUM CHLORIDE 20 MEQ TABLET.ER. PO SCH (08:00)
== END 2018-09-08 15:00 | disposition home or self-care (01) | DRG 392 ==
LOC: ER 07:31 → 6 SOUTH 11:05
PROVIDERS: ADMIT Internal Medicine; ATTEND Internal Medicine
DX: K52.9 Noninfective gastroenteritis and colitis, unspecified (principal); R74.0 Nonspecific elevation of levels of transaminase and lactic acid dehydrogenase [LDH]; I10 Essential (primary) hypertension; E87.6 Hypokalemia; E86.0 Dehydration; Z82.49 Family history of ischemic heart disease and other diseases of the circulatory system; Z88.8 Allergy status to other drugs, medicaments and biological substances; Z90.49 Acquired absence of other specified parts of digestive tract; Z79.899 Other long term (current) drug therapy
CPT/HCPCS: 36415; 76700; 80048; 80053; 81001; 83690; 85007; 85025; 87045; 87086; 87328; 87493; 96361; 96374; 96375; J1200; J2405; J2765; J3490; J7030; 99285-25; G0378

== ENCOUNTER → 2020-09-15 | Outpatient (CLI) | payer BC, OTHER ==
[~2020-09-15] MED LIST changes: +ATEN25TA PO; +LISI1TAB23 PO; -LISI1TAB3 PO; +MULT-445 PO; -MULT1TAB52 PO; +WARF7.5T45 PO
== END ==
LOC: LAB 07:17
PROVIDERS: ATTEND Internal Medicine Gastroenterology
DX: Z01.812 Encounter for preprocedural laboratory examination (principal); Z20.822 Contact with and (suspected) exposure to COVID-19; R10.13 Epigastric pain
CPT/HCPCS: U0003

== ENCOUNTER → 2020-09-18 | Day surgery (SDC) | payer BC ==
[~2020-09-18] MED LIST changes: +HYDROmorphone 2 MG/ML VIAL IVP PRN; +IV RINGERS,LACTATED 1000ML 1,000 ML IV SCH; +LIDOCAINE 2% PF 5 ML VIAL. ONE; +MORPHINE SULFATE 2 MG/ML VIAL. IVP PRN; +PROCHLORPERAZINE 10 MG/2 ML VIAL. IVP PRN; +PROPOFOL 10 MG/ML (20ML) VIAL. IV ONE; +fentaNYL PF VIAL 100 MCG/2 ML VIAL IVP PRN
--- NOTE | 2020-09-18 14:16 | PDOC4 ---
PROCEDURE Procedure EGD/colonoscopy Indication: dyspepsia/screening Meds: per anesthesia Findings: E--Grade A esophagitis at 40cm. G--mild prepyloric erythema, biopsied. D--Normal to second portion. GEORGES normal. -'Scope advanced to cecum. Prep adequate. Mucosa normal. Scattered diverticula from sigmoid to hepatic flexure. No polyps, etc. Small internal hemorrhoids on retroflex. Pam. well. IMP: Diverticulosis Internal hemorrhoids. Otherwise normal exam. REC: Await path. Resume diet and meds as before. F/u my office in 2 weeks. AVNI SR MD Sep 18, 2020 14:16
[2020-09-18 14:30] VITALS: BP 124/64
--- NOTE | 2020-09-21 18:08 | PATHOLOGY ---
[facility] Accession Number: [id number] . 01 Material submitted: . gastrointestinal site - ANTRAL BIOPSY . 01 Clinical history: . DYSPEPSIA . 02 Diagnosis: Gastric biopsies, antrum: - Chronic gastritis, mild. . (JPM:mm; 09/21/2020) [facility] 09/21/2020 1408 Local . 02 Comment: Sections of the gastric biopsy reveal segments of gastric antral and antral/body transition mucosa showing congestion and mild chronic inflammation. A properly-controlled immunoperoxidase stain for Helicobacter is negative for Helicobacter organisms. . Special stain: Immunoperoxidase stain for Helicobacter on A1. . (JPM:mml; 09/21/2020) . 02 Electronically signed: . Roman Springer MD, Pathologist NPI- [id number] . 01 Gross description: . The specimen is received in formalin, labeled "Silverio, Mamie, antral BX" and consists of 2 fragments of pink-metzger tissue measuring 0.3 x 0.2 cm and 0.6 x 0.2 cm which are entirely submitted in A1. (SDY; 09/20/2020) [facility] 09/21/2020 1405 Local . 02 Pathologist provided ICD-10: K29.50 . 02 CPT . 173887, X45362 Specimen Comment: A courtesy copy of this report has been sent to [phone] Specimen Comment: Report sent to / Performed at: 01 [facility] [address], [place], [place] [id number] MD Deni Morejon MD Phone: [phone] Performed at: 02 [facility] [address], [place] [id number] MD Roman Springer MD Phone: [phone]
== END | disposition home or self-care (01) ==
LOC: SURG 12:32
PROVIDERS: ATTEND Internal Medicine Gastroenterology
DX: R19.7 Diarrhea, unspecified (principal); K57.30 Diverticulosis of large intestine without perforation or abscess without bleeding; K64.0 First degree hemorrhoids; K21.00 Gastro-esophageal reflux disease with esophagitis, without bleeding; K31.89 Other diseases of stomach and duodenum; R10.13 Epigastric pain; K29.50 Unspecified chronic gastritis without bleeding; I48.91 Unspecified atrial fibrillation; I10 Essential (primary) hypertension; Z79.899 Other long term (current) drug therapy; Z98.890 Other specified postprocedural states; Z72.89 Other problems related to lifestyle; Z88.0 Allergy status to penicillin; Z91.041 Radiographic dye allergy status; Z88.8 Allergy status to other drugs, medicaments and biological substances; Z88.1 Allergy status to other antibiotic agents
CPT/HCPCS: 43239; 45378; 88305; 88342; J2704

== ENCOUNTER 2021-06-17 13:33 | Emergency (ER) | payer BC ==
[~2021-06-17] VITALS: Ht 162.6 cm; Wt 93.5 kg
[~2021-06-17 13:33] MED LIST changes: -HYDROmorphone 2 MG/ML VIAL IVP PRN; -IV RINGERS,LACTATED 1000ML 1,000 ML IV SCH; -LIDOCAINE 2% PF 5 ML VIAL. ONE; -LISI1TAB23 PO; +LISI1TAB35 PO; -MORPHINE SULFATE 2 MG/ML VIAL. IVP PRN; -PROCHLORPERAZINE 10 MG/2 ML VIAL. IVP PRN; -PROPOFOL 10 MG/ML (20ML) VIAL. IV ONE; -fentaNYL PF VIAL 100 MCG/2 ML VIAL IVP PRN
--- NOTE | 2021-06-17 15:59 | RAD ---
Exam performed: One view chest. Indication: Reason: cough, soa / Spl. Instructions: / History: Date of Service: 06/17/2021 3:52 PM Comparison: One view chest from 02/07/2018. Single AP upright portable view chest findings: Cardiomediastinal silhouette is within limits of normal. Streaky linear opacities are seen in both josie ng bases likely atelectasis or scarring. No acute infiltrates, effusion or pneumothorax is detected. The bony structures are normal. Impression: Linear bibasilar opacities likely atelectasis or scarring. Electronically signed by: Esther Dyer MD (06/17/2021 3:57 PM) [facility]
[2021-06-17] MEDS ORDERED: METH4TAB2 PO ×2 (16:28→18:27)
[2021-06-17] MEDS ORDERED: AZIT250T6 PO ×2 (16:28→18:27)
[2021-06-17] MEDS ORDERED: ALBU2.5V8 INH ×2 (16:28→18:27)
--- NOTE | 2021-06-17 16:31 | PHYS DOC ---
Past Medical History Past Medical History: Hypertension Past Surgical History: Cholecystectomy Smoking Status: Never Smoker Alcohol Use: Occasionally Drug Use: None General Adult EDM: Chief Complaint: SHORTNESS OF BREATH HPI: HPI: Patient is a 60 year old female who presents with 1 week of sinus congestion, sneezing, cough and a sinus headache that she is only been taking guaifenesin for. She states she does get sinus infections and does have seasonal allergies. She states this morning she awoke and she was feeling slightly short of breath and a little chest tightness. Patient is Covid vaccinated. She did recently get her influenza vaccine. She denies dizziness, syncope, nausea, vomiting, abdominal pain, chest pain, fever, body aches, vision change, numbness or tingling, diarrhea. She does not smoke. She has a history of cholecystectomy, C. difficile, dyspepsia and hypertension. She rates her discomfort at a 7 out of 10 at this time. Review of Systems: Review of Systems: Constitutional: Denies fever or chills. [] Eyes: Denies change in visual acuity. [] HENT: + nasal congestion or denies sore throat. [] Respiratory: + cough or +shortness of breath. [] Cardiovascular: + chest tightness pain or denies edema. [] GI: Denies abdominal pain, nausea, vomiting, bloody stools or diarrhea. [] : Denies dysuria. [] Musculoskeletal: Denies back pain or joint pain. [] Integument: Denies rash. [] Neurologic: Denies headache, focal weakness or sensory changes. [] Endocrine: Denies polyuria or polydipsia. [] Lymphatic: Denies swollen glands. [] Psychiatric: Denies depression or anxiety. [] Heart Score: C/O Chest Pain: No Allergies: Allergies: Allergies Coded Allergies Type Severity Reaction Last Updated Verified amoxicillin Allergy Intermediate immediate vomiting 09/18/20 Yes clavulanic acid Allergy Intermediate immediate vomiting 09/18/20 Yes metronidazole Allergy Intermediate 09/18/20 Yes Iodinated Contrast Media Allergy Mild rash 09/18/20 Yes Physical Exam: PE: Constitutional: Well developed, well nourished, no acute distress, non-toxic appearance. [] HENT: Normocephalic, atraumatic, bilateral external ears normal, oropharynx moist, no oral exudates, nose normal. Sinus congestion. Postnasal drip. [] Eyes: PERRLA, EOMI, conjunctiva normal, no discharge. [] Neck: Normal range of motion, no tenderness, supple, no stridor. [] Cardiovascular:Heart rate regular rhythm, no murmur [] Lungs & Thorax: Bilateral breath sounds clear to auscultation [] Abdomen: Bowel sounds normal, soft, no tenderness, no masses, no pulsatile masses. [] Skin: Warm, dry, no erythema, no rash. [] Back: No tenderness, no CVA tenderness. [] Extremities: No tenderness, no cyanosis, no clubbing, ROM intact, no edema. [] Neurologic: Alert and oriented X 3, normal motor function, normal sensory function, no focal deficits noted. [] Psychologic: Affect normal, judgement normal, mood normal. [] EKG: EK and read by Dr. Pinon is a sinus rhythm with an inverted T wave in aVL but no STEMI Radiology/Procedures: Radiology/Procedures: [] Impression: [facility] [address] [place], [place] [id number] IMAGING REPORT Signed PATIENT: KHOA CAPONE ACCOUNT: [id number] : 1960 LOCATION: ER AGE: 60 SEX: F EXAM STATUS: REG ER ORD. PHYSICIAN: JESSICA SALINAS APRN REASON: cough, soa PROCEDURE: PORTABLE CHEST 1V Exam performed: One view chest. Indication: Reason: cough, soa / Spl. Instructions: / History: Date of Service: 06/17/2021 3:52 PM Comparison: One view chest from 02/07/2018. Single AP upright portable view chest findings: Cardiomediastinal silhouette is within limits of normal. Streaky linear opacities are seen in both lung bases likely atelectasis or scarring. No acute infiltrates, effusion or pneumothorax is detected. The bony structures are normal. Impression: Linear bibasilar opacities likely atelectasis or scarring. Electronically signed by: Esther Dyer MD (06/17/2021 3:57 PM) [facility] DICTATED and SIGNED BY: ESTHER DYER MD DATE: 06/17/21 [id number] Course & Med Decision Making: Course & Med Decision Making Pertinent Labs and Imaging studies reviewed. (See chart for details) See HPI. Alert and oriented x4. Ambulatory with steady gait. Speaks in full clear sentences. Skin pink warm and dry. Mucous membranes are moist. Postnasal drip. Sinus congestion with maxillary sinus pressure with palpation. Lungs are clear to auscultation all lobes. Chest x-ray shows no acute findings. [] [place] Disclaimer: Nancy Disclaimer: This electronic medical record was generated, in whole or in part, using a voice recognition dictation system. Departure Departure Impression: Primary Impression: Sinusitis Qualified Codes: J01.00 - Acute maxillary sinusitis, unspecified Additional Impression: Cough Disposition: HOME / SELF CARE / HOMELESS Condition: STABLE Referrals: V[facility] (PCP) Patient Instructions: Cough, Adult, Sinusitis Additional Instructions: Follow-up with your primary care provider if needed. Drink plenty of fluids. Continue taking the Mucinex. Take medication as prescribed and with food. Consider also using a nasal spray such as Flonase or Nasacort. If anything worsens or you begin running a high fever or vomiting return to emergency room. Scripts Albuterol Sulfate (PROAIR HFA INHALER) 8.5 Gm Hfa.aer.ad 1 PUFF INH PRN Q6HRS PRN for SHORTNESS OF BREATH, #1 EACH 0 Refills Prov: JESSICA SALINAS APRN 06/17/21 Methylprednisolone (MEDROL) 4 Mg Tab.ds.pk 1 PKG PO UD, #1 PKG Prov: JESSICA SALINAS APRN 06/17/21 Azithromycin (AZITHROMYCIN TABLET) 250 Mg Tablet 1 PKG PO UD for 5 Days, #6 TAB 0 Refills 2 the first day followed by 1 for days 2-5 Prov: JESSICA SALINAS APRN 06/17/21 JESSICA SALINAS APRN Jun 17, 2021 16:31
[2021-06-17 18:06] VITALS: BP 154/73
--- NOTE | 2021-06-18 16:12 | NUR ---
IP: Informed pt of negative covid test. Pt verbalized understanding.
--- NOTE | 2021-06-20 02:14 | EKG ---
[facility] [address] [place] [address] Test Date: 2021-06-17 Test Time: 15:54:07 Pat Name: KHOA CAPONE Department: Room: Gender: F Gold Layer: : 1960 Requested By: JESSICA SALINAS Order Number: [id number] Reading MD: Irving Abad Measurements Intervals [place] Rate: 55 P: -3 MN: 214 QRS: 34 QRSD: 82 T: 79 QT: 428 QTc: 412 Interpretive Statements SINUS RHYTHM MILD NONSPECIFIC ST CHANGES Electronically Signed On 06-25-2021 11:46:32 CLIENT SUPPORT ANALYST by Irving Abad
--- NOTE | 2021-07-10 11:37 | EKG ---
[facility] [address] [place] [address] Test Date: 2021-06-17 Test Time: 15:54:07 Pat Name: KHOA CAPONE Department: Room: Gender: F Supervisor [employer]: : 1960 Requested By: JESSICA SALINAS Order Number: [id number] Reading MD: Measurements Intervals [place] Rate: 55 P: -3 ME: 214 QRS: 34 QRSD: 82 T: 79 QT: 428 QTc: 412 Interpretive Statements SINUS RHYTHM MILD NONSPECIFIC ST CHANGES Electronically Signed On 06-25-2021 11:46:32 REDUCING SYSTEM OPERATOR by Irving Abad
--- NOTE | 2021-07-10 11:40 | EKG ---
[facility] [address] [place] [address] Test Date: 2021-06-17 Test Time: 15:54:07 Pat Name: KHOA CAPONE Department: Room: Gender: F Section [employer]: : 1960 Requested By: JESSICA SALINAS Order Number: [id number] Reading MD: Irving Abad Measurements Intervals [place] Rate: 55 P: -3 [place]: 214 QRS: 34 QRSD: 82 T: 79 QT: 428 QTc: 412 Interpretive Statements SINUS RHYTHM MILD NONSPECIFIC ST CHANGES Electronically Signed On 06-25-2021 11:46:32 PHYSICIAN PRACTICE ADMINISTRATOR by Irving Abad [facility]
== END 2021-06-17 18:15 | disposition home or self-care (01) ==
LOC: ER 13:33
DX: J01.00 Acute maxillary sinusitis, unspecified (principal); I10 Essential (primary) hypertension; Z20.822 Contact with and (suspected) exposure to COVID-19; Z88.1 Allergy status to other antibiotic agents; Z91.041 Radiographic dye allergy status; Z88.8 Allergy status to other drugs, medicaments and biological substances
CPT/HCPCS: 71045; 87426; 93005; 99285; U0003; U0005